=== PATIENT | female | born 1985 ===

== ENCOUNTER 2023-12-14 10:28 | Emergency (ER) | payer OTHER, SELFPAY ==
--- NOTE | ~2023-12-14 | CT_ITS ---
EXAMINATION: CT ABDOMEN AND PELVIS WITHOUT CONTRAST CLINICAL INFORMATION: Left flank pain. Microscopic hematuria. COMPARISON: None available. TECHNIQUE: Multidetector volumetric imaging was performed from the superior aspect of the liver through the pubic symphysis. Sagittal and coronal reformatted images were obtained on the technologist's workstation. This CT examination was performed using dose optimization techniques as appropriate, variously including the following: *Automated exposure control *Adjustment of mA and/or kV according to patient size (this includes techniques or standardized protocols for targeted exams where dose is matched to indication/reason for exam; i.e. extremities or head) *Use of iterative reconstruction technique DLP: 572 mGy-cm FINDINGS: LUNG BASES: The visualized lung bases are unremarkable. LIVER, GALLBLADDER, AND BILIARY TREE: The liver is normal in size, shape, and attenuation. No focal hepatic lesion or biliary ductal dilatation is present. The gallbladder is unremarkable with no evidence of radiopaque gallstones, gallbladder wall thickening, or obvious pericholecystic inflammatory changes. PANCREAS: Unremarkable. SPLEEN: Unremarkable. ADRENAL GLANDS: Unremarkable. KIDNEYS AND URETERS: The kidneys are normal in size, shape, and attenuation. No hydronephrosis, hydroureter, or calculi seen. No perinephric stranding. BLADDER: Unremarkable. GASTROINTESTINAL TRACT: The small and large bowel are unremarkable. The appendix is unremarkable. ABDOMINAL WALL: Small fat-containing umbilical hernia. LYMPH NODES: Normal. VASCULAR: Unremarkable. PELVIC VISCERA: Unremarkable. OSSEOUS STRUCTURES: Subchondral osteosclerosis without bony ankylosis of the sacroiliac joints bilaterally. CT/CT abdomen pelvis wo IV con IMPRESSION: 1. No acute abnormality CT scan abdomen pelvis. 2. Subchondral osteosclerosis without bony ankylosis of the sacroiliac joints bilaterally. This can be seen with sacroiliitis. Fleischner guidelines were followed.
--- NOTE | ~2023-12-14 | XR_ITS ---
EXAMINATION: XR LUMBOSACRAL SPINE CLINICAL INFORMATION: Pain radiating to left leg. COMPARISON: None available. TECHNIQUE: Three views of the lumbosacral spine. FINDINGS: No evidence of acute compression deformity or subluxation. Mild intervertebral disc height loss and facet arthropathy at L5-S1. Symmetric SI joints. No significant paraspinal soft tissue abnormality. XR/XR lumbar spine 2-3V IMPRESSION: 1. No acute compression deformity or subluxation. 2. Mild lumbar spondylosis at L5-S1.
[2023-12-14 10:44] VITALS: BP 111/66; PULSE 72; RESP 16; TEMP 36.9; O2SAT 96; BMI 27.5
--- NOTE | 2023-12-14 11:31 | ED_ITS ---
HPI - Back Pain/Injury General Chief Complaint: Back Pain/Injury Stated Complaint: severe back pain Time Seen by Provider: 12/14/23 11:20 Source: patient Mode of arrival: ambulatory Limitations: no limitations History of Present Illness HPI Narrative: Patient is a 38-year-old female who presents emergency department for evaluation of back pain. Reportedly bilateral left is worse than right. Described as a stabbing pain, at times made worse with particular movements. Feels pain radiating to the left buttock and laterally across the hip. Onset was approximately 4 days ago. She does admit that the day prior she had been doing some cleaning around the house and moving of furniture, but did not feel that she did anything too strenuous. When asked, she admits to having some mild dysuria this morning but previously had no genitourinary symptoms. She denies chest pain, shortness of breath, abdominal pain. MD elicited complaint: back pain Related Data Previous Rx's ?Medication ?Instructions ?Recorded cyclobenzaprine 5 mg tablet 5 mg PO TID PRN muscle spasm #20 12/14/23 tabs Allergies Allergy/AdvReac Type Severity Reaction Status Date / Time No Known Allergies Allergy Verified 12/14/23 10:45 Review of Systems Review of Systems: Yes all other systems are reviewed and are negative PMFSH Past Medical History Attestation statement: The following information was validated with the patient. Source: old records reviewed Surgical History (Updated 12/14/23 @ 12:56 by Thu Velazco) History of hysterectomy Social History Social History Smoked in Last 30 Days: No Use of substances other than those prescribed or required for medical reasons: No Advance Directives: No Advance Directives Information Provided: Yes Patient : No Physical Exam Vital Signs: Vital Signs: Last Vital Signs Temp 99.2 F 12/14/23 14:24 Pulse 98 12/14/23 14:24 Resp 16 12/14/23 14:24 BP 108/62 12/14/23 14:24 Pulse Ox 98 12/14/23 14:24 O2 Del Method Room Air 12/14/23 14:24 BMI result Body Mass Index 27.5 Appearance: Alert.?Oriented to person, place and time. No acute distress.?Normal affect. Eyes: Pupils equal, round and reactive to light.? ENT: Pharynx normal.?? Neck: Normal inspection.? Neck supple.?? CVS: Heart sounds normal. Normal heart rate and rhythm.? Pulses normal; bilateral radial pulses 2+, bilateral posterior tibial/dorsalis pedis pulses 2+.? Respiratory: No respiratory distress.? Lung sounds clear to auscultation bilaterally?? Abdomen: Soft and non-tender. Normoactive bowel sounds. Skin: Skin warm and dry.? Normal skin color.? ? Extremities: No lower extremity edema.? Back: + Moderate paraspinal muscular tenderness from lumbar region to left buttock, with left CVA tenderness. No midline spinal tenderness, step-off's, or deformity. Full ROM intact in bilateral lower extremities. Straight leg test negative on right; Straight leg test negative on left. No rashes, lesions, a reas of induration or fluctuance, or signs of infection noted., Neuro: Moves all extremities spontaneously. 5/5 strength in hip extension/flexion, abduction, adduction. Sensation to light touch intact bilaterally. Patellar and Achilles reflex 2+ bilaterally. No ataxia, gait normal and steady.. No focal neuro deficits. Medications Administered Discontinued Medications Generic Name Dose Route Start Last Admin Trade Name Freq PRN Reason Stop Dose Admin Oxycodone HCl 5 mg 12/14/23 12:27 12/14/23 12:48 Oxycodone Hcl Immed Release 5 Mg Tablet PO 12/14/23 12:28 5 mg ONCE ONE Administration Medical Decision Making Medical Decision Making [facility] Narrative: patient is a 38-year-old female who presents emergency department for evaluation of back pain radiating to the left buttock/lateral hip as per HPI. No overt precipitating injury. Onset was 4 days ago with mild dysuria today. Concern at this time for lumbar radiculopathy versus nephrolithiasis/ureteral calculi. Initial urinalysis revealing microscopic hematuria, patient denies any known history of such, no evidence of infection at this time. XR of the lumbar spine without fracture subluxation, mild spondylosis of L5-S1. CT of the abdomen and pelvis was obtained for further evaluation and is without evidence of ureteral calculi obstruction hydronephrosis. pain at this time most consistent with lumbar radiculopathy. On neurological exam there are no deficits. Not consistent with spinal fracture, spinal infection, epidural abscess, AAA, epidural abscess, or dissection. No high risk past medical history including i ncontinence, fever, immunosuppression, recent surgery or lumbar puncture, coagulopathy, significant trauma, recent unintentional weight loss, pulsatile mass, history of cancer, history of TB, history of IV drug use that would warrant MRI. Not consistent with ectopic , pyelonephritis, urinary tract infection, renal calculi, pelvic infection, appendicitis, diverticulitis. On exam no concern for cauda equina syndrome. Plan for discharge home with prescription for muscle relaxant in addition to acetaminophen / ibuprofen, and follow-up with primary care provider, and patient agreed with plan. Differential Diagnosis Differential Diagnoses: The differential diagnosis associated with the presentation includes ( see narrative above) Admission/Observation Consideration of admission/observation: Escalation of care including admission/observation considered ( see narrative above) Lab Data MDM Lab Attestation statement: I reviewed the patient's lab results. ( see narrative above) Labs: Lab Results 12/14/23 Range/Units 12:02 Urine Color Yellow Urine Appearance Clear Urine pH 5.5 (5.0-9.0) Ur Specific Robert Lee >= 1.030 H (1.005-1.025) Urine Protein Negative (Neg-Trace) mg/dL Urine Glucose (UA) Negative (Negative) mg/dL Urine Ketones Negative (Negative) mg/dL Urine Blood Moderate (2+) H (Negative) Urine Nitrite Negative (Negative) Ur Leukocyte Esterase Negative (Negative) Urine RBC >20 H (0-2) /HPF Urine WBC 0-5 (0-5) /HPF Ur Squamous Epith Cells 0-2 (0-2) /HPF Urine Bacteria None Seen (None Seen) Hyaline Casts 0-2 (0-2) /LPF Urine Test NEGATIVE (NEGATIVE) Independent Interpretation I performed an independent interpretation of an: Plain X-Ray ( no acute fracture or subluxation of the lumbar spine) Radiology Impression Discussion of test interpretation with radiology: I have reviewed the radiologist's reading. Radiologist Impression: XR/XR lumbar spine 2-3V IMPRESSION: 1. No acute compression deformity or subluxation. 2. Mild lumbar spondylosis at L5-S1. CT/CT abdomen pelvis wo IV con IMPRESSION: 1. No acute abnormality CT scan abdomen pelvis. 2. Subchondral osteosclerosis without bony ankylosis of the sacroiliac joints bilaterally. This can be seen with sacroiliitis. Independent Historian Clinical information obtained from an independent historian. History obtained from or confirmed by: Spouse Prescription Management I considered prescription management with: Pain Medication Discharge Plan Discharge Clinical Impression: Lumbar radiculopathy, Lumbar spondylosis Patient Disposition: Home, Self-Care Instructions: Lumbar Radiculopathy (ED), Lower Back Exercises (ED) Additional Instructions: her CT scan today did not show any evidence of kidney stones or infection to the kidneys. Your urine test today did not show any urinary infection, there was however blood seen under the microscope in your urine sample. Please follow-up with your primary care provider in regards to this. Your x-ray does reveal arthritic changes in the lower back. You can take ibuprofen 200 mg, 3 tablets (600mg) every 6-8 hours as needed for pain, in addition to Tylenol 500 mg, 2 tablets (1,000mg) every 4-6 hours as needed for pain, but not to exceed 3 doses daily (3,000mg). You may also use Lidoderm patches to the areas on your back that are most painful. Stopped taking the methocarbamol as this has not been helpful for your pain. A prescription for muscle relaxer was sent to your pharmacy for pain that is unrelieved by ibuprofen / Tylenol. This medication may make you drowsy. Should not drive, drink alcohol, or work for at least 6 hours after taking this medication. ? Prescriptions: New cyclobenzaprine 5 mg tablet 5 mg PO TID PRN (Reason: muscle spasm) Qty: 20 0RF Referrals: Physician,Unknown J [Primary Care Provider] - Print Language: Kinyarwanda
[2023-12-14 12:11] LABS: Appearance Urine Clear; Color Urine Yellow; Glucose Urine UA Negative (Negative); Leukocyte Esterase Urine Negative (Negative); Nitrite Urine Negative (Negative); PH 5.5 (5.0-9.0); Specific Gravity - Urine >= 1.030 (1.005-1.025); UMIC TRIGGER UACC YES; Urine Blood Moderate (2+) (Negative); Urine Ketones Negative (Negative); Urine Protein Negative (Neg-Trace)
[2023-12-14 12:13] LABS: Bacteria Urine None Seen (None Seen); Hyaline Casts Urine 0-2 /LPF (0-2); RBC Urine >20 /HPF (0-2); Squamous Epithelial Cell Urine 0-2 /HPF (0-2); WBC Urine 0-5 /HPF (0-5)
[2023-12-14 12:14] LABS: UPreg QC Valid YES; Urine Pregnancy NEGATIVE (NEGATIVE)
[2023-12-14] MEDS: oxyCODONE HCl Immed Release 5 MG TABLET PO (12:48)
--- NOTE | 2023-12-14 12:58 | PC.NURSE ---
Pt medicated per MAR, awaiting CT scan, aware of plan of care.
[2023-12-14 14:24] VITALS: BP 108/62; PULSE 98; RESP 16; TEMP 37.3; O2SAT 98
[2023-12-14 15:34] VITALS: BP 108/62; PULSE 85; RESP 18; TEMP 36.7; O2SAT 99
== END 2023-12-14 15:35 | disposition home or self-care (01) ==
PROVIDERS: Nurse Practitioner Family; Emergency Provider Student in an Organized Health Care Education/Training Program
DX: M47.816 Spondylosis without myelopathy or radiculopathy, lumbar region (principal); M54.50 Low back pain, unspecified; R10.2 Pelvic and perineal pain; Z79.899 Other long term (current) drug therapy
CPT/HCPCS: 72100; 74176; 81001; 81025; 99284